=== PATIENT | male | born 1980 | race Caucasian/White ===

== ENCOUNTER 2019-05-17 15:11 | Outpatient (CLI) | payer OTHER ==
[~2019-05-17 15:11] MED LIST: iohexol 300mg/ml 100ml inj. ONE
== END 2019-05-17 23:59 | disposition home or self-care (01) ==
LOC: 64 CT 15:11
PROVIDERS: ATTEND Internal Medicine
DX: K91.89 Other postprocedural complications and disorders of digestive system (principal); R10.9 Unspecified abdominal pain; J43.2 Centrilobular emphysema; J98.4 Other disorders of lung; Z90.410 Acquired total absence of pancreas; Z90.81 Acquired absence of spleen; Y83.8 Other surgical procedures as the cause of abnormal reaction of the patient, or of later complication, without mention of misadventure at the time of the procedure; Y92.89 Other specified places as the place of occurrence of the external cause
CPT/HCPCS: 74177; Q9967